=== PATIENT | female | born 1985 | race African-American/Black ===

== ENCOUNTER 2021-05-19 10:03 | Observation (INO) | payer MEDICAID ==
[2021-05-19] MEDS ORDERED: ASPI-378 PO (11:45)
[2021-05-19] MEDS ORDERED: PREN-96 PO (11:46)
[2021-05-19] MEDS ORDERED: FOLI1TAB6 PO (11:46)
== END 2021-05-19 11:58 | disposition home or self-care (01) ==
LOC: LDRP 10:03
PROVIDERS: ADMIT Obstetrics & Gynecology; ATTEND Obstetrics & Gynecology
DX: O46.92 Antepartum hemorrhage, unspecified, second trimester (principal); Z3A.27 27 weeks gestation of pregnancy
CPT/HCPCS: 59025; 81002; 94760; G0378

== ENCOUNTER 2023-02-25 20:22 | Observation (INO) | payer MEDICAID ==
[~2023-02-25] VITALS: Ht 172.7 cm; Wt 190.1 kg
[~2023-02-25 20:22] MED LIST: ASPI-378 PO; FOLI-119 PO; PREN-96 PO
[2023-02-25 22:10] LABS: Urine Epithelial Cast None Seen /hpf (<5)
[2023-02-25 22:26] LABS: Urine Bacteria NONE SEEN /hpf (None Seen); Urine Blood Negative /uL (Negative); Urine Clarity HAZY (Clear); Urine Color Yellow (Yellow); Urine Mucus FEW (None Seen); Urine Protein, UAD 1+ (Negative); Urine Specific Gravity 1.024 (1.001-1.035); Urine WBC 7 /hpf (0 - 5); Urine pH 6.5 (5.0-8.0)
[2023-02-25 22:51] LABS: Fern Testing Positive
== END 2023-02-25 22:00 | disposition left against medical advice (07) ==
LOC: LDRP 20:22 → UNDODISOB 22:00
PROVIDERS: ADMIT Obstetrics & Gynecology; ATTEND Obstetrics & Gynecology
DX: O42.92 Full-term premature rupture of membranes, unspecified as to length of time between rupture and onset of labor (principal); O16.3 Unspecified maternal hypertension, third trimester; O99.213 Obesity complicating pregnancy, third trimester; O26.893 Other specified pregnancy related conditions, third trimester; E66.01 Morbid (severe) obesity due to excess calories; R10.30 Lower abdominal pain, unspecified; Z3A.38 38 weeks gestation of pregnancy
CPT/HCPCS: 59025; 81001; 81002; 84112; G0378; Q0114